=== PATIENT | female | born 1960 | race Caucasian/White ===

== ENCOUNTER 2018-01-20 11:51 | Emergency (ER) | payer BC, OTHER ==
[~2018-01-20] VITALS: Ht 165.1 cm; Wt 92.1 kg
[~2018-01-20 11:51] MED LIST changes: -CYCL10TA29; -DOXY-229 PO; -IBUP800T37 PO; -OXYC20TA99 PO; -TOPI-28
[2018-01-20] MEDS ORDERED: ADENOSINE IV SOLN 3 MG/ML SYR IVP ONE ×2 (12:05)
--- NOTE | 2018-01-20 12:09 | ER Report ---
History and Physical Time Seen By MD: 11:54 Hx. of Stated Complaint: PT IN SVT, SENT FROM URGENT CARE; INFECTED TOOTH, THOUGHT SHE WAS GETTING PNEUMONIA HPI/ROS CHIEF COMPLAINT: SVT HISTORY OF PRESENT ILLNESS: This is a 57-year-old female who presents to the emergency department for SVT, she was sent from urgent care. Patient states that she's had some left-sided dental pain and was at urgent care for possible dental abscess. They did an EKG at urgent care was that she was in SVT and subsequently sent her to the emergency department for further evaluation. Patient arrives alert and oriented and appropriate. She does have a rapid pulse on palpation. No diaphoresis or chest pain or shortness of breath at this time. Patient asked if she was still in the rapid heart rate. Bedside EKG upon arrival showing a SVT with a ventricular rate of 180 bpm. While assessing her I did have her bear down as having a bowel movement, blow through a small straw and applied a cold compress to the face which were unsuccessful in converting. REVIEW OF SYSTEMS: Constitutional: No fever, no chills. Eyes: No discharge. ENT: No sore throat. Cardiovascular: As above. Respiratory: No cough, no shortness of breath. Gastrointestinal: No abdominal pain, no vomiting. Genitourinary: No hematuria. Musculoskeletal: No back pain. Skin: No rashes. Neurological: No headache. Dental: As above. Allergies: Coded Allergies: Penicillins (Verified Allergy, Unknown, 01/20/18) Sulfa (Sulfonamide Antibiotics) (Verified Allergy, Unknown, 01/20/18) cephalexin (Verified Allergy, Unknown, 01/20/18) Home Meds Active Scripts Doxycycline Monohydrate (DOXYCYCLINE MONOHYDRATE) 100 Mg Tablet, 100 MG PO BID for 10 Days, #20 TAB 0 Refills Prov:ANGELY BERRY [employer]-BC 01/20/18 Reported Medications Cyclobenzaprine Hcl (CYCLOBENZAPRINE HCL) 10 Mg Tablet, PRN 01/20/18 Topiramate (TOPIRAMATE) 100 Mg Tablet, QHS 01/20/18 Oxycodone Hcl (OXYCONTIN) 20 Mg Tab.er.12h, 20 MG PO PRN, TAB 01/20/18 Ibuprofen (IBUPROFEN) 800 Mg Tablet, 1 TAB PO Q8H, TAB 01/20/18 Discontinued Scripts Prednisone (PREDNISONE) 20 Mg Tablet, 20 MG PO BID, #10 TAB Prov:HAILEE CHOUDHURY DO 09/06/16 Albuterol Sulfate 90 Mcg/Act (PROAIR HFA 90 MCG/ACT) 8.5 Gm Hfa.aer.ad, 2 PUFF IH Q4-6H for shortness of breath, #1 INHALER 1 Refill Prov:HAILEE CHOUDHURY DO 09/06/16 Guaifenesin/Codeine Phosphate (GUAIFENESIN-CODEINE SYRUP) 10 Ml Liquid, 5-10 ML PO Q6H for cough, #200 Prov:HAILEE CHOUDHURY DO 09/06/16 Azithromycin 250 Mg Tab (AZITHROMYCIN 250 MG TAB) 250 Mg Tablet, 1 TAB PO QDAY, #4 TAB Prov:HAILEE CHOUDHURY DO 09/06/16 Past Medical/Surgical History The patient has a past medical and surgical history of back pain, dental pain. Reviewed Nurses Notes: Yes Constitutional Vital Sign - Last 24 Hours 01/20/18 01/20/18 01/20/18 01/20/18 11:54 11:56 11:56 12:00 Pulse 179 179 Resp 16 B/P (MAP) 152/100 (117) 152/100 122/98 (106) Pulse Ox 97 97 O2 Delivery Room Air 01/20/18 01/20/18 01/20/18 01/20/18 12:11 12:15 12:16 12:19 Pulse 179 177 B/P (MAP) 121/100 (107) 132/117 (122) Pulse Ox 96 01/20/18 01/20/18 01/20/18 01/20/18 12:21 12:26 12:30 12:31 Pulse 112 111 112 B/P (MAP) 154/111 (125) Pulse Ox 94 94 93 01/20/18 01/20/18 01/20/18 01/20/18 12:36 12:41 12:45 12:46 Pulse 117 118 113 B/P (MAP) 140/97 (111) Pulse Ox 93 93 92 01/20/18 01/20/18 01/20/18 01/20/18 12:51 12:56 13:00 13:01 Pulse 113 109 106 B/P (MAP) 148/95 (112) Pulse Ox 94 95 93 01/20/18 01/20/18 01/20/18 01/20/18 13:06 13:11 13:15 13:16 Pulse 109 106 B/P (MAP) 126/95 (105) Pulse Ox 93 95 96 01/20/18 01/20/18 01/20/18 01/20/18 13:30 13:31 13:36 13:41 Pulse 107 105 99 B/P (MAP) 124/89 (101) Pulse Ox 98 96 96 01/20/18 01/20/18 01/20/18 01/20/18 13:45 13:46 13:51 13:56 Pulse 100 101 103 B/P (MAP) 135/88 (104) Pulse Ox 96 90 97 01/20/18 01/20/18 01/20/18 01/20/18 14:01 14:06 14:11 14:15 Pulse 105 100 102 B/P (MAP) 143/85 (104) Pulse Ox 96 96 91 01/20/18 01/20/18 14:16 14:21 Pulse 104 101 Pulse Ox 96 97 Intake and Output 01/20/18 01/20/18 01/21/18 15:00 23:00 07:00 Intake Total 1000 ml Balance 1000 ml Physical Exam General Appearance: The patient is alert, has no immediate need for airway protection and no signs of toxicity. Eyes: Pupils equal and round no pallor or injection. ENT, Mouth: Mucous membranes are moist. No obvious abscess but some redness along the left lower gumline. Respiratory: There are no retractions, lungs are clear to auscultation. Cardiovascular: Rapid and regular rate and rhythm, no murmurs, clicks or rubs. Gastrointestinal: Abdomen is soft and non tender, no masses, bowel sounds normal. Neurological: Alert and oriented 4. Moving all cherries. Following all commands. No focal lordosis. Skin: Warm and dry, no rashes. Musculoskeletal: Neck is supple non tender. Extremities are nontender, nonswollen and have full range of motion. DIFFERENTIAL DIAGNOSIS: After history and physical exam differential diagnosis was considered for but not limited to pulmonary embolus, myocardial infarction, supraventricular tachycardia, hypomagnesemia and hypokalemia. Medical Decision Making Data Points Result Diagram: 01/20/18 1202 01/20/18 1202 Laboratory Hematology Test 01/20/18 12:02 Red Blood Count 5.26 M/uL (4.17-5.56) Mean Corpuscular Volume 87.6 fL (80.0-96.0) Mean Corpuscular Hemoglobin 30.4 pg (26.0-33.0) Mean Corpuscular Hemoglobin Concent 34.7 g/dL (32.0-36.0) Red Cell Distribution Width 13.1 % (11.5-14.5) Mean Platelet Volume 8.1 fL (7.2-11.1) Neutrophils (%) (Auto) 72.0 % (39.4-72.5) Lymphocytes (%) (Auto) 17.3 % (17.6-49.6) Monocytes (%) (Auto) 7.3 % (4.1-12.4) Eosinophils (%) (Auto) 2.7 % (0.4-6.7) Basophils (%) (Auto) 0.7 % (0.3-1.4) Nucleated RBC Relative Count (auto) 0.0 /100WBC Neutrophils # (Auto) 6.7 K/uL (2.0-7.4) Lymphocytes # (Auto) 1.6 K/uL (1.3-3.6) Monocytes # (Auto) 0.7 K/uL (0.3-1.0) Eosinophils # (Auto) 0.3 K/uL (0.0-0.5) Basophils # (Auto) 0.1 K/uL (0.0-0.1) Nucleated RBC Absolute Count (auto) 0.00 K/uL Peripheral Blood Smear No Y/N Sodium Level 145 mmol/L (137-145) Potassium Level 3.5 mmol/L (3.5-5.0) Chloride Level 110 mmol/L (98-107) Carbon Dioxide Level 19 mmol/L (22-31) Blood Urea Nitrogen 13 mg/dl (7-18) Creatinine 0.90 mg/dl (0.52-1.04) Glomerular Filtration Rate Calc > 60.0 Random Glucose 126 mg/dl (75-110) Calcium Level 9.3 mg/dl (8.4-10.2) Magnesium Level 1.9 mg/dl (1.7-2.2) Total Bilirubin 0.4 mg/dl (0.2-1.3) Aspartate Amino Transf (AST/SGOT) 30 U/L (0-35) Alanine Aminotransferase (ALT/SGPT) 52 U/L (0-56) Alkaline Phosphatase 122 U/L (0-126) Total Protein 7.7 gm/dl (6.3-8.2) Albumin 4.3 g/dl (3.5-5.0) Chemistry Test 01/20/18 12:02 White Blood Count 9.4 k/uL (4.5-11.0) Red Blood Count 5.26 M/uL (4.17-5.56) Hemoglobin 16.0 g/dL (12.0-16.0) Hematocrit 46.1 % (34.0-47.0) Mean Corpuscular Volume 87.6 fL (80.0-96.0) Mean Corpuscular Hemoglobin 30.4 pg (26.0-33.0) Mean Corpuscular Hemoglobin Concent 34.7 g/dL (32.0-36.0) Red Cell Distribution Width 13.1 % (11.5-14.5) Platelet Count 318 K/uL (150-450) Mean Platelet Volume 8.1 fL (7.2-11.1) Neutrophils (%) (Auto) 72.0 % (39.4-72.5) Lymphocytes (%) (Auto) 17.3 % (17.6-49.6) Monocytes (%) (Auto) 7.3 % (4.1-12.4) Eosinophils (%) (Auto) 2.7 % (0.4-6.7) Basophils (%) (Auto) 0.7 % (0.3-1.4) Nucleated RBC Relative Count (auto) 0.0 /100WBC Neutrophils # (Auto) 6.7 K/uL (2.0-7.4) Lymphocytes # (Auto) 1.6 K/uL (1.3-3.6) Monocytes # (Auto) 0.7 K/uL (0.3-1.0) Eosinophils # (Auto) 0.3 K/uL (0.0-0.5) Basophils # (Auto) 0.1 K/uL (0.0-0.1) Nucleated RBC Absolute Count (auto) 0.00 K/uL Peripheral Blood Smear No Y/N Glomerular Filtration Rate Calc > 60.0 Calcium Level 9.3 mg/dl (8.4-10.2) Magnesium Level 1.9 mg/dl (1.7-2.2) Total Bilirubin 0.4 mg/dl (0.2-1.3) Aspartate Amino Transf (AST/SGOT) 30 U/L (0-35) Alanine Aminotransferase (ALT/SGPT) 52 U/L (0-56) Alkaline Phosphatase 122 U/L (0-126) Total Protein 7.7 gm/dl (6.3-8.2) Albumin 4.3 g/dl (3.5-5.0) EKG/Imaging EKG Interpretation 12 lead EKG: Time of EKG 1152.12 lead EKG: Rhythm: SVT, ventricular rate 180 bpm. [place]: normal QRS: normal ST segments: No obvious ST depression or Elevation. 12 lead EKG: EKG 1212 after 6 mg of adenosine rapid IV push. Rhythm: Sinus rhythm, with frequent PVCs, rate 89 bpm. [place]: normal QRS: normal ST segments: No obvious ST depression or elevation. 12 lead EKG: Time of EKG 1213. Rhythm: Sinus tachycardia, ventricular rate 121 BPM. [place]: normal QRS: normal ST segments: No obvious ST depression or elevation. Imaging Location: [facility] Patient: Love Mustafa : 1960 Visit/Account:[id number] Date of Sevice: 01/20/2018 EXAMINATION: CT CHEST PULMONARY ANGIOGRAM COMPARISON: None available HISTORY: elevated d-dimer PROCEDURE: Pulmonary arterial phase imaging of the chest with 75 mL intravenous Isovue 370. Reconstruction of the source data set includes multiplanar 2D in the sagittal and coronal planes, and 3D reconstructed coronal slab MIP series. One of the following dose optimization techniques was utilized in the performance of this exam: Automated exposure control; adjustment of the mA and/ or kV according to the patient's size; or use of an iterative reconstruction technique. Specific details can be referenced in the facility's radiology CT exam operational policy. FINDINGS: Pulmonary vasculature: There is good contrast opacification of the pulmonary arterial system. No pulmonary embolism. Main pulmonary artery size is normal. Cardiac and mediastinum: Cardiac chamber size is normal. No pericardial effusion. No thoracic aortic aneurysm. No thoracic lymph node enlargement. Tiny hiatal hernia. Lungs and pleura: Indistinct region of tree-in-bud density in the posterior right upper lobe. No other consolidation or nodule is identified. No pneumothorax, edema, or effusion. Airways: The central airways are patent. Upper abdomen: No evidence of acute disease within the visualized upper abdomen. Osseous structures: Mild degenerative change in the visualized spine. No acute findings. IMPRESSION: 1. Right upper lobe indistinct region of tree-in-bud density suggestive of an infectious bronchiolitis. 2. No pulmonary embolism. Report Dictated By: Octavio Walton MD at 01/20/2018 1:35 PM Report E-Signed By: Octavio Walton MD at 01/20/2018 1:43 PM WSN:[id number] ED Course/Re-evaluation Clinical Indication for ER IV: Hydration, IV Access ED Course The patient was admitted to room. A history of tachycardia were obtained. Differential diagnoses were considered. Upon arrival the patient was encouraged to try Valsalva maneuvers which were unsuccessful. An IV was started. An EKG was obtained showing SVT. Patient was given a 6 mg IV bolus of adenosine. Patient did convert from SVT into a sinus tachycardia. A CBC and CMP were obtained which were unremarkable. A d-dimer was positive from the urgent care. A CTA was negative for pulmonary embolus. I did review these results with the patient and her son. The CT did show however a possible infectious bronchiolitis. I did go ahead and treat patient with doxycycline for the bronchitis as well as the dental infection. Patient was told that she must follow-up with a dentist and have the tooth either excised or a possible root canal. Patient did get a 1 L normal saline bolus in the emergency department. The patient has no other questions or concerns at this time and was discharged home. The patient was also instructed to follow-up with a primary care provider for further evaluation of the SVT. Patient had no other questions or concerns at this time and was discharged home. Patient reminded him a sinus rhythm while in the emergency department. Decision to Disposition Date: Jan 20, 2018 Decision to Disposition Time: 14:15 Depart Departure Latest Vital Signs Vital Signs Date Time Temp Pulse Resp B/P (MAP) Pulse Ox O2 Delivery O2 Flow Rate FiO2 01/20/18 14:21 101 97 01/20/18 14:15 143/85 (104) 01/20/18 11:56 16 Room Air Impression: Primary Impression: SVT (supraventricular tachycardia) Additional Impressions: Pain, dental Elevated d-dimer Condition: Improved Disposition: HOME OR SELF-CARE Referrals: SEVERIANO SPRAGUE APRN New Scripts Doxycycline Monohydrate (DOXYCYCLINE MONOHYDRATE) 100 Mg Tablet 100 MG PO BID for 10 Days, #20 TAB 0 Refills Prov: ANGELY BERRY 01/20/18 Patient Instructions: Dental Abscess (ED), Dental Caries (ED), Supraventricular Tachycardia (ED) Additional Instructions: Your lab work, other than an elevated d-dimer, looks good today. You do not have a pulmonary emobolis. You must follow up with a Dentist this week. Establish care with a primary provider. Drink plenty of water. Get plenty of rest. Take Ibuprofen or Tylenol as needed . Take the doxycycline as directed. Return to the ED for worsening symptoms or any other concerns you may have. Problem Qualifiers ANGELY BERRY Jan 20, 2018 12:09
[2018-01-20 12:18] LABS: PLATELET COUNT, AUTOMATED 318 K/uL (150-450)
[2018-01-20] MEDS ORDERED: CYCL10TA29 (12:24)
[2018-01-20] MEDS ORDERED: TOPI-28 (12:24)
[2018-01-20] MEDS ORDERED: OXYC20TA99 PO (12:24)
[2018-01-20] MEDS ORDERED: IBUP800T37 PO (12:24)
[2018-01-20] MEDS ORDERED: NS(*) 0.9% 1000 ML BAG 1,000 ML IV ONE (12:50)
[2018-01-20] MEDS ORDERED: IOPAMIDOL 76% 75 ML INFUS BTL 75 ML ONE (13:16)
[2018-01-20] MEDS ORDERED: NS 0.9% 150 ML BAG 150 ML ONE (13:16)
--- NOTE | 2018-01-20 13:49 | RADIOLOGY IMAGING REPORT ---
FACILITY: [facility] PATIENT NAME: Love Mustafa : 1960 MR: [id number] V: [id number] EXAM DATE: ORDERING PHYSICIAN: ANGELY BERRY TECHNOLOGIST: Location: [facility] Patient: Love Mustafa : 1960 Visit/Account:[id number] Date of Sevice: 01/20/2018 EXAMINATION: CT CHEST PULMONARY ANGIOGRAM COMPARISON: None available HISTORY: elevated d-dimer PROCEDURE: Pulmonary arterial phase imaging of the chest with 75 mL intravenous Isovue 370. Reconstru ction of the source data set includes multiplanar 2D in the sagittal and coronal planes, and 3D recon structed coronal slab MIP series. One of the following dose optimization techniques was utilized in the performance of this exam: Autom ated exposure control; adjustment of the mA and/or kV according to the patient's size; or use of an i terative reconstruction technique. Specific details can be referenced in the facility's radiology C T exam operational policy. FINDINGS: Pulmonary vasculature: There is good contrast opacification of the pulmonary arterial system. No pul monary embolism. Main pulmonary artery size is normal. Cardiac and mediastinum: Cardiac chamber size is normal. No pericardial effusion. No thoracic aorti c aneurysm. No thoracic lymph node enlargement. Tiny hiatal hernia. Lungs and pleura: Indistinct region of tree-in-bud density in the posterior right upper lobe. No othe r consolidation or nodule is identified. No pneumothorax, edema, or effusion. Airways: The central airways are patent. Upper abdomen: No evidence of acute disease within the visualized upper abdomen. Osseous structures: Mild degenerative change in the visualized spine. No acute findings. IMPRESSION: 1. Right upper lobe indistinct region of tree-in-bud density suggestive of an infectious bronchioliti s. 2. No pulmonary embolism. Report Dictated By: Octavio Walton MD at 01/20/2018 1:35 PM Report E-Signed By: Octavio Walton MD at 01/20/2018 1:43 PM [id number]
--- NOTE | 2018-01-20 14:10 | EKG ---
FACILITY: [facility] PATIENT NAME: CLARICE LOWE : [id number] MR: [id number] V: [id number] EXAM DATE: ORDERING PHYSICIAN: ANGELY BERRY TECHNOLOGIST: ABBY Pleitez Reason : TACHY Blood Pressure : / mmHG Vent. Rate : 121 BPM Atrial Rate : 121 BPM P-R Int : 170 ms QRS Dur : 070 ms QT Int : 312 ms P-R-T Axes : 024 065 026 degrees QTc Int : 443 ms Sinus tachycardia T wave abnormality, consider inferior ischemia Abnormal ECG No longer in SVT, but tachycardic Confirmed by ADRIANNA HENDRICKSON ([id number]) on 01/20/2018 3:57:37 PM Referred By: Confirmed By:ADRIANNA HENDRICKSON
--- NOTE | 2018-01-20 14:10 | EKG ---
FACILITY: [facility] [place] PATIENT NAME: CLARICE LOWE : [id number] MR: [id number] V: [id number] EXAM DATE: ORDERING PHYSICIAN: ANGELY BERRY TECHNOLOGIST: ABBY Pleitez Reason : TACHY Blood Pressure : / mmHG Vent. Rate : 180 BPM Atrial Rate : 241 BPM P-R Int : 000 ms QRS Dur : 100 ms QT Int : 270 ms P-R-T Axes : 000 078 -32 degrees QTc Int : [address] and T wave abnormality, consider inferior ischemia Abnormal ECG No previous ECGs available Confirmed by ADRIANNA HENDRICKSON ([id number]) on 01/20/2018 3:56:46 PM Referred By: Confirmed By:ADRIANNA HENDRICKSON
[2018-01-20 14:15] VITALS: BP 143/85
[2018-01-20] MEDS ORDERED: DOXY-229 PO (14:23)
== END 2018-01-20 14:26 | disposition home or self-care (01) ==
LOC: ER 11:58
DX: I47.1 Supraventricular tachycardia (principal); R79.1 Abnormal coagulation profile; K08.89 Other specified disorders of teeth and supporting structures; J40 Bronchitis, not specified as acute or chronic
CPT/HCPCS: 71275; 83735; 85025; 93005; 96361; 96374; 99284; J0153; J7030; Q9967; 82040; 82247; 82310; 82374; 82435; 82565; 82947; 84075; 84132; 84155; 84295; 84450; 84460; 84520

== ENCOUNTER → 2018-01-20 | Outpatient (REF) | payer BC, OTHER ==
[~2018-01-20] MED LIST: ALBU8.5H IH; AZIT-18 PO; CYCL10TA29; DOXY-229 PO; GUAI10LI4 PO; IBUP800T37 PO; OXYC20TA99 PO; PRED20TA6 PO; TOPI-28
[2018-01-20 11:56] LABS: PLATELET COUNT, AUTOMATED 344 K/uL (150-450)
== END ==
LOC: ZZSTITCHES 11:44
PROVIDERS: ATTEND Physician Assistant
DX: R00.0 Tachycardia, unspecified (principal); R47.1 Dysarthria and anarthria
CPT/HCPCS: 82040; 82247; 82310; 82374; 82435; 82565; 82947; 84075; 84132; 84155; 84295; 84450; 84460; 84520; 85025; 85379